=== PATIENT | female | born 1965 | race Caucasian/White ===

== ENCOUNTER 2022-08-07 09:25 | Outpatient (CLI) | payer BC, SELFPAY ==
--- NOTE | 2022-08-07 | ECG_ITS ---
Measurements Intervals [place] Rate: 63 P: 72 AK: 144 QRS: 80 QRSD: 86 T: 74 QT: 402 QTc: 413 Interpretive Statements SINUS RHYTHM NO PREVIOUS ECG AVAILABLE FOR COMPARISON Electronically Signed On 08-07-2022 16:13:40 MEDICAL AFFAIRS LEADER by Nela Chavez M.D.
--- NOTE | ~2022-08-07 | XR_ITS ---
EXAMINATION: XR chest 2V DATE: 08/07/2022 09:51 INDICATION: Palpitations. Shortness of breath. Left chest pain. TECHNIQUE: Frontal and lateral views of the chest were obtained. COMPARISON: Neck CT 04/25/2015 FINDINGS: There is mild scarring at the lung apices. No pleural effusion or pneumothorax. The heart s ize is normal. IMPRESSION: 1. Stable mild scarring at the lung apices. Reviewed, dictated and finalized at location A. LLIGENCE SUPPORT OFFICER
[2022-08-07 10:40] LABS: Basophils Percent Auto 0.6 % (0.2-1.2); Eosinophils Percent Auto 0.2 % (0-4.4); Hematocrit 42.1 % (37.0-47.0); Hemoglobin 14.2 g/dL (12.0-15.0); Immature Granulocyte Absolute 0.01 K/mm3 (0.00-0.031); Immature Granulocyte Percent A 0.2 % (0-0.5); Lymphocytes Percent Auto 28.1 % (18.3-44.2); Mean Corpuscular HGB Conc 33.7 g/dl (32-36); Mean Corpuscular Hemoglobin 31.7 pg (26-34); Monocytes Absolute Auto 0.3 K/mm3 (0.1-0.6); Monocytes Percent Auto 6.9 % (2.6-8.5); Platelet Count Result 196 k/mm3 (150-375); Red Blood Count 4.48 M/mm3 (4.2-5.4); Red Cell Distribution Width 11.9 % (11.5-14.5); White Blood Count 4.6 K/mm3 (4.5-10.0)
[2022-08-07 10:58] LABS: Alanine Aminotransferase 21 U/L (6-35); Albumin Level 4.1 g/dL (3.5-5.1); Alkaline Phosphatase 73 U/L (38-126); Anion Gap 4 mmol/L (8-16); Aspartate Amino Transferase 23 U/L (14-36); Bilirubin,Total 0.7 mg/dL (0.2-1.3); Blood Urea Nitrogen 13 mg/dL (7-17); Carbon Dioxide 33 mmol/L (22-30); Chloride 105 mmol/L (98-107); Cholesterol 253 mg/dL (0-200); Estimated Glomerular Filt Rate > 60; Glucose 98 mg/dL (65-110); HDL Direct 71 mg/dL; Magnesium 1.9 mg/dL (1.6-2.3); Phosphorus 3.6 mg/dL (2.5-4.5); Potassium 4.1 mmol/L (3.4-5.0); Sodium 142 mmol/L (137-145); Triglycerides 83 mg/dL (<150)
[2022-08-07 10:59] LABS: Creatinine Urine 114.5 mg/dL
[2022-08-07 11:09] LABS: LDL Cholesterol Direct 114 mg/dL
[2022-08-07 11:40] LABS: Hemoglobin A1C 4.7 % (<5.7)
[2022-08-07 12:03] LABS: Folic Acid 10.1 ng/mL (2.76->20)
[2022-08-07 12:20] LABS: Iron 68 ug/dL (37-170)
[2022-08-07 12:30] LABS: Percent Iron Saturation 19 % (20-50)
[2022-08-07 12:38] LABS: MALB Creatinine Ratio < 5.2 mg/g (0-30); Microalbumin Urine Random < 6.0 mg/L (0-16.7)
[2022-08-07 12:39] LABS: Free T4 Free Thyroxine 0.86 ng/mL (0.78-2.19)
[2022-08-07 13:18] LABS: Vitamin D 25 Hydroxy 16.3 ng/mL
[2022-08-10 04:14] LABS: Triiodothyronine T3 Free 2.7 pg/mL (2.3-4.2)
[2022-08-15 11:04] LABS: Testosterone Free 2.9 pg/mL (0.2-5.0)
== END 2022-08-07 09:26 | disposition home or self-care (01) ==
PROVIDERS: PCP Nurse Practitioner Adult Health; Visit Provider Nurse Practitioner Adult Health
DX: R00.2 Palpitations (principal); R53.1 Weakness; R06.02 Shortness of breath; R59.1 Generalized enlarged lymph nodes; R53.83 Other fatigue
CPT/HCPCS: 36415; 71046; 80053; 80061; 82043; 82306; 82607; 82746; 83036; 83540; 83550; 83735; 84100; 84402; 84439; 84443; 84481; 84550; 85025; 85027; 93005

== ENCOUNTER 2023-08-31 10:52 | Emergency (ER) | payer OTHER, SELFPAY ==
[2023-08-31 11:12] VITALS: BP 107/70; PULSE 68; RESP 16; TEMP 37.1; O2SAT 100
--- NOTE | 2023-08-31 11:23 | ED.GENADULT ---
HPI - General Adult General Chief complaint: Eye Problems Stated complaint: Eyes Irritation Source: patient, RN notes reviewed and old records reviewed Mode of arrival: ambulatory Limitations: no limitations History of Present Illness HPI narrative: 57-year-old female presents to [facility] with complaint of bilateral eye redness, swelling, irritation, drainage that started yesterday. Patient states it is worsened right eye. Patient states has tried feeding eyes and feels like she has bruising eyes to get drainage off. Related Data Home Medications Medication Instructions Recorded Confirmed Fish Oil 1 cap PO DIRECTED 08/31/23 08/31/23 ergocalciferol (vitamin D2) 1,250 1,250 mcg PO WEEKLY 08/31/23 08/31/23 mcg (50,000 unit) capsule Allergies Allergy/AdvReac Type Severity Reaction Status Date / Time Sulfa (Sulfonamide Allergy Mild Other Verified 08/31/23 11:10 Antibiotics) Review of Systems Constitutional: Constitutional: Reports no additional constitutional complaints, Denies body ache(s), Denies chills, Denies fatigue, Denies fever(s) and Denies headache(s) Eyes: Eyes: Reports as per HPI, Denies blurry vision, Denies exophthalmos, Denies change in vision, Denies decreased night vision, Denies diplopia, Reports eye discharge, Reports irritation, Reports eye pain and Reports requires corrective lenses ENT: Reports system reviewed and no additional complaints, except as documented, Denies vertigo, Denies dizziness, Denies ear discharge, Denies otalgia, Denies facial pain, Denies headache(s), Denies nasal congestion, Denies nasal discharge, Denies sinus pain, Denies sinus pressure and Denies sore throat Cardiovascular: Cardiovascular: Reports no additional cardiovascular complaints, Denies chest pain, Denies chest pain at rest, Denies rapid heart rate and Denies dyspnea Respiratory: Respiratory: Reports no additional respiratory complaints, Denies chest congestion, Denies cough, Denies pain on inspiration, Denies pain with cough and Denies dyspnea Gastrointestinal: Gastrointestinal: Denies abdominal pain, Denies diarrhea, Denies nausea and Denies vomiting Integumentary/Breasts: Skin/Breast: Denies rash Neurologic: Reports system reviewed and no additional complaints, except as documented, Denies vertigo, Denies dizziness and Denies headache(s) Endocrine: Endocrine: Denies fatigue PMFSH Comments At the time of my signature, I reviewed and agree with the nursing past medical, surgical, social, and family history. There is no relevant family history pertinent to the patient complaint. Exam Const: General: cooperative, healthy appearing, no acute distress and well nourished Nutritional Appearance: well nourished Orientation/consciousness: patient oriented x3 Limitations: no limitations HENMT: Head: normal to inspection and normocephalic Ears: external ears normal Face/Nose/Sinus: normal facial exam Face and sinus: normal facial exam Mouth: Yes Normal oral and palatal mucosa present, Yes oropharynx normal and Yes moist mucous membranes Eyes: Alignment and Position: alignment normal Periorbital: periorbital findings normal Eyelids: eyelid abnormality right upper eyelid erythema Conjunctivae: conjunctival abnormality bilateral discharge Sclera: sclerae normal and scleral abnormality bilateral scleral exudate Pupils: Equal, round and reactive pupils present Resp: Effort & Inspection: normal respiratory effort, able to speak in complete sentences, no audible wheezes, no cough, no respiratory distress and no retractions Auscultation: clear to auscultation bilaterally, no crackles, no rales, no rhonchi and no wheezes Cardio: Rate: regular rate Rhythm: regular rhythm Skin: General skin exam: normal color and no rashes or lesions noted Neuro: General: patient oriented x3 Cranial nerves: Yes Equal, round and reactive pupils present Psych: Appearance: grossly normal Mental Status: mental status grossly no
== END 2023-08-31 11:28 | disposition home or self-care (01) ==
PROVIDERS: Emergency Provider Registered Nurse; PCP Family Medicine
DX: H10.89 Other conjunctivitis (principal)
CPT/HCPCS: 99213; G0463

== ENCOUNTER 2024-03-04 08:18 | Emergency (ER) | payer OTHER, SELFPAY ==
--- NOTE | 2024-03-04 08:21 | ED.EYEPROB ---
HPI - Eye Problem General Chief complaint: Eye Problems Stated complaint: Right Eye Irritation Time Seen by Provider: 03/04/24 08:25 Source: patient, RN notes reviewed and old records reviewed Mode of arrival: ambulatory Limitations: no limitations History of Present Illness HPI Narrative: 58-year-old female presents to the [facility] with right eye irritation that started when she woke up this morning Denies any trauma. Does wear contact lenses. Denies any pain. States that she has had watery eyes. Reports redness and stating that the right upper eyelid feels swollen. Onset (ago): hour(s) (2) Treatments Prior to Arrival: other (Left over 0 floxacillin drops) Related Data Home Medications Medication Instructions Recorded Confirmed Fish Oil 1 cap PO DIRECTED 08/31/23 03/04/24 ergocalciferol (vitamin D2) 1,250 1,250 mcg PO WEEKLY 08/31/23 03/04/24 mcg (50,000 unit) capsule Allergies Allergy/AdvReac Type Severity Reaction Status Date / Time Sulfa (Sulfonamide Allergy Mild Other Verified 03/04/24 08:28 Antibiotics) Review of Systems Review of Systems: All systems reviewed & are unremarkable except as noted in HPI and below Constitutional: Constitutional: Reports no additional constitutional complaints Eyes: Eyes: Reports as per HPI, Reports eye discharge (Clear), Reports irritation (Right) and Reports itchy eyes (Right) ENT: Reports system reviewed and no additional complaints, except as documented Cardiovascular: Cardiovascular: Reports no additional cardiovascular complaints, Denies chest pain and Denies dyspnea Respiratory: Respiratory: Reports no additional respiratory complaints, Denies chest congestion, Denies cough and Denies dyspnea Gastrointestinal: Gastrointestinal: Reports no additional gastrointestinal complaints, Denies abdominal pain, Denies nausea and Denies vomiting Musculoskeletal: Musculoskeletal: Reports no additional musculoskeletal complaints Integumentary/Breasts: Skin/Breast: Reports system reviewed and no additional complaints, except as docu Neurologic: Reports system reviewed and no additional complaints, except as documented Psychiatric: Psychiatric: Reports no additional psychiatric complaints Allergic/Immunologic: Allergic/Immunologic: Reports no additional allergic/immunologic complaints PMFSH Comments At the time of my signature, I reviewed and agree with the nursing past medical, surgical, social, and family history. There is no relevant family history pertinent to the patient complaint. Exam Const: General: cooperative, healthy appearing, comfortable, no acute distress, well developed, alert and well nourished Nutritional Appearance: well nourished Orientation/consciousness: patient oriented x3 Limitations: no limitations HENMT: Head: normal to inspection Ears: hearing grossly normal bilaterally, external ears normal, TM's normal bilaterally, EAC's normal, mastoids normal and no periauricular adenopathy Face/Nose/Sinus: Normal external nose present, Normal nares present, Normal nasal mucous membranes and turbinates present, normal facial exam and face symmetric Face and sinus: normal facial exam and face symmetric Mouth: Yes Normal oral and palatal mucosa present, Yes lip normal and Yes tongue normal Throat: posterior oropharynx normal, uvula midline and no uvular edema Eyes: General: appearance normal, both eyes and all related structures Alignment and Position: alignment normal Periorbital: periorbital findings normal Eyelids: eyelid abnormality right upper eyelid inflamed cyst external lid and tenderness (Medial aspect); without erythema, without foreign bodies, no crusting or scaling of lid margins and with no swelling Conjunctivae: conjunctivae normal Pupils: Equal, round and reactive pupils present EOM: EOMs intact bilaterally Direct Ophthalmoscopy: no photophobia Other: 20 40 right, 20 40 left Eyes/upper lids images: 1. Stye noted Neck:
[2024-03-04 08:28] VITALS: BP 118/84; PULSE 77; RESP 18; TEMP 37.5; O2SAT 100
== END 2024-03-04 08:45 | disposition home or self-care (01) ==
PROVIDERS: Emergency Provider Nurse Practitioner; PCP Family Medicine
DX: H00.011 Hordeolum externum right upper eyelid (principal)
CPT/HCPCS: 99213; G0463

== ENCOUNTER 2024-03-18 11:18 | Outpatient (CLI) | payer OTHER, SELFPAY ==
--- NOTE | ~2024-03-18 | XR_ITS ---
XR shoulder RT min 2V Ordering provider: Chaz Boles, SOFT WORK WRAPPER LAYER AND EXAMINER History: . RIGHT SHOULDER PAIN, LIMITED ROM, SHOULDER BLADE PAIN, INJUR . Comparison: None. FINDINGS: BONES: No acute fracture or dislocation. Minimal degenerative changes in the area of the greater tube rosity. JOINT SPACES: The acromioclavicular joint is normal. The glenohumeral joint is normal. SOFT TISSUES: Normal. IMPRESSION: No acute osseous abnormality right shoulder. Reviewed, dictated and finalized at location A.
== END 2024-03-18 11:19 | disposition home or self-care (01) ==
LOC: ANHIMG 11:20
PROVIDERS: PCP Family Medicine; Visit Provider Registered Nurse
DX: M25.511 Pain in right shoulder (principal)
CPT/HCPCS: 73030

== ENCOUNTER 2024-07-02 09:00 | Outpatient (RCR) | payer OTHER, SELFPAY ==
[2024-04-08 08:00] VITALS: BP_SYST 80
--- NOTE | 2024-04-08 09:04 | OPREHPOC ---
Outpatient Therapy Plan of Care This is a Multidisciplinary Plan of Care that may contain components documented by all disciplines (PT, OT, and ST.) PT Problem 1 PT Problem #1 Knowledge Deficit PT Goal 1 Goal / Goal Update *indep with HEP * correct shoulder position with exercises Target Visit 8 PT Problem 2 PT Problem #2 Pain PT Goal 1 Goal / Goal Update 1* pt report pain rating at worst of 5/10 2* self assessment Quick DASH rating of 50% limitation in activity 3* pt reports sleeping tolerance of 4 hours at time Target Visit 8 PT Problem 3 PT Problem #3 Impaired Flexibility PT Goal 1 Goal / Goal Update increase flexibility of R shoulder, to improve ability to reach and use R/dominant UE: in standing: active motion 1* flexion to 130' 2* abduction to 90' 3* ER- reach to back of head, palm to back of head 4*IR- reach behind back, palm to waist Target Visit 8 PT Problem 4 PT Problem #4 Impaired Strength PT Goal 1 Goal / Goal Update increase strength of R shoulder, to be able to cook and do self care activities, carry groceries: in standing x 5 reps 1* flexion to 90' with 2# hand wt 2* abduction to 90' 3* IR- reach behind back, palm to waist Target Visit 8
--- NOTE | 2024-04-08 09:04 | PTOPEVAL1 ---
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; Reported Pain Level Pain Score Self Report Additional Pain Score Comments pain range in the past week: 1- 9/10; pulls and hurts, cannot use arm; anterior, posterior, lateral and top of GH joint; radicular into humerus to elbow, initially was into her forearm; increase pain: use R arm; getting dressed, cooking decrease pain: rest arm, hot shower, essential oils; rub shoulder is not taking any pain meds; with sleeping- unable to lie on her R side; sleep 2 hours at time ( normal- 4 hours/time) also reports pain in R wrist--sprained with lifting flag out of a pole in December Assessment PT Clinical Summary Devon has the diagnosis of R shoulder pain. Onset in October with reaching out with R arm. Self assessment Quick DASH rating of 84% limitation in activity level. She is R hand dominant and reports problems with dressing, carrying groceries and cooking. History includes intermittent neck pain and recently sprained R wrist with lifting. With the evaluation-- decreased active motion and strength of all ranges R shoulder; active cervical ranges WNL and pain increase over R upper traps and neck. posture is rounded and with palpation over shoulder--all areas painful and jumps to light touch. Skilled PT services are indicated for treatment of frozen shoulder: modalities to decrease pain and spasms, therapeutic exercises to increase R shoulder ROM and strength with education for posture and HEP. Plan of Care Interventions Electrical Stimulation,Hot Pack/Cold Pack,Manual Therapy,Neuro Re-education,Patient Education,Therapeutic Activities,Therapeutic Exercise,Ultrasound,Other Other Interventions taping PT Services Indicated Yes Treatment Frequency and 2x/wk for 8 visits Duration These treatments will address the objective and functional deficits as defined above. The patient will be advanced safely and appropriately in order for the patient to progress towards his/her prior level of function. Additional exercises will be introduced and as well as a comprehensive home exercise program upon discharge, if needed, ?to ensure carryover of functional gains achieved in the clinic. This treatment plan has been reviewed and agreement upon by the patient.
[2024-05-04 12:30] VITALS: BP_SYST 85
--- NOTE | 2024-05-04 13:32 | OPREHPOC ---
Outpatient Therapy Plan of Care This is a Multidisciplinary Plan of Care that may contain components documented by all disciplines (PT, OT, and ST.) PT Problem 1 PT Problem #1 Knowledge Deficit PT Goal 1 Goal / Goal Update *indep with HEP * correct shoulder position with exercises Target Visit 8 Progress Partially Met PT Goal 2 Goal / Goal Update 05-04-24 progress goals partially met--still needs cues for position shoulder continue towards goals with progression of HEP Target Visit 16 PT Problem 2 PT Problem #2 Pain PT Goal 1 Goal / Goal Update 1* pt report pain rating at worst of 5/10 2* self assessment Quick DASH rating of 50% limitation in activity 3* pt reports sleeping tolerance of 4 hours at time Target Visit 8 Progress Partially Met PT Goal 2 Goal / Goal Update 05-04-24 progress goal 3 met; improved with #1 to 10 and #2-DASH of 75% continue towards goals 1 & 2 Target Visit 16 PT Problem 3 PT Problem #3 Impaired Flexibility PT Goal 1 Goal / Goal Update increase flexibility of R shoulder, to improve ability to reach and use R/dominant UE: in standing: active motion 1* flexion to 130' 2* abduction to 90' 3* ER- reach to back of head, palm to back of head 4*IR- reach behind back, palm to waist Target Visit 8 Progress Not Met PT Goal 2 Goal / Goal Update 05-04-24 progress improved with all, but goals not met continue towards goals Target Visit 16 PT Problem 4 PT Problem #4 Impaired Strength PT Goal 1 Goal / Goal Update increase strength of R shoulder, to be able to cook and do self care activities, carry groceries: in standing x 5 reps 1* flexion to 90' with 2# hand wt 2* abduction to 90' 3* IR- reach behind back, palm to waist Target Visit 8 Progress Not Met PT Goal 2 Goal / Goal Update 05-04-24 progress goals not met; #1 met for 2# hand weight, but not to 90' continue towards goals Target Visit 16
--- NOTE | 2024-05-04 13:32 | PTOPPROG ---
Assessment and note entered by Yamile Gtz, PT Progress Report Assessment Status Progress ICD-10 Condition Codes (PT) M25.511 Onset November 26, 2023 Subjective Information shoulder is better, but not all the way fixed yet; is doing exercises at home and they help; the therapist moving my shoulder and manipulate the joint is helping; want to keep coming for therapy and get shoulder better. PAIN: range in the past week -02/06: ant-lat- posterior shoulder increase pain: throwing blankets back off; stress decrease pain: doing the exercises; heat, alelexis REYNOLDS is sleeping a maximum of 4 hours at time Assessment PT Clinical Summary Devon has received a total of 8 PT sessions. Compared to the initial evaluation: pain rating from to 1-02/06; self assessment Quick Dash from 84 to 75% limitation in activity level: reported tolerance with sleeping from 2 to 4 hours at time. ROM of R shoulder: active/passive: flexion 105/130' abduction 75/85'; standing active IR- reach behind back, fingers to sacrum ER- reaching to back of head, fingers to back of head all shoulder motions increase pain, with most pain increase with abduction motion. She has received education for HEP and posture correction. The goals were partially met. Continue PT treatments. Plan of Care Interventions Electrical Stimulation,Hot Pack/Cold Pack,Manual Therapy,Neuro Re-education,Patient Education,Therapeutic Activities,Therapeutic Exercise,Ultrasound,Other Other Interventions taping PT Services Indicated Yes Treatment Frequency and 2x/wk for 8 visits Duration These treatments will address the objective and functional deficits as defined above. The patient will be advanced safely and appropriately in order for the patient to progress towards his/her prior level of function. Additional exercises will be introduced and as well as a comprehensive home exercise program upon discharge, if needed, ?to ensure carryover of functional gains achieved in the clinic. This treatment plan has been reviewed and agreement upon by the patient.
[2024-05-31 12:40] VITALS: BP_SYST 150
--- NOTE | 2024-05-31 13:34 | OPREHPOC ---
Outpatient Therapy Plan of Care This is a Multidisciplinary Plan of Care that may contain components documented by all disciplines (PT, OT, and ST.) PT Problem 1 PT Problem #1 Knowledge Deficit PT Goal 1 Goal / Goal Update *indep with HEP * correct shoulder position with exercises Target Visit 8 Progress Partially Met PT Goal 2 Goal / Goal Update 05-04-24 progress goals partially met--still needs cues for position shoulder continue towards goals with progression of HEP 05-31-24 progress goal met; continue to progress HEP and education Target Visit 24 PT Problem 2 PT Problem #2 Pain PT Goal 1 Goal / Goal Update 1* pt report pain rating at worst of 5/10 2* self assessment Quick DASH rating of 50% limitation in activity 3* pt reports sleeping tolerance of 4 hours at time Target Visit 8 Progress Partially Met PT Goal 2 Goal / Goal Update 05-04-24 progress goal 3 met; improved with #1 to 8/10 and #2-DASH of 75% continue towards goals 1 & 2 05-31-24 progress goal 3 met; #2 improved to 59% limitation continue towards goals Target Visit 24 PT Problem 3 PT Problem #3 Impaired Flexibility PT Goal 1 Goal / Goal Update increase flexibility of R shoulder, to improve ability to reach and use R/dominant UE: in standing: active motion 1* flexion to 130' 2* abduction to 90' 3* ER- reach to back of head, palm to back of head 4*IR- reach behind back, palm to waist Target Visit 8 Progress Not Met PT Goal 2 Goal / Goal Update 05-04-24 progress improved with all, but goals not met continue towards goals 05-31-24 progress goals 1,2,3 met NEW GOALS: active R shoulder ROM; 1* flexion 150' 2* abduction 140' Target Visit 24 PT Problem 4 PT Problem #4 Impaired Strength PT Goal 1 Goal / Goal Update increase strength of R shoulder, to be able to cook and do self care activities, carry groceries: in standing x 5 reps 1* flexion to 90' with 2# hand wt 2* abduction to 90' 3* IR- reach behind back, palm to waist Target Visit 8 Progress Not Met PT Goal 2 Goal / Goal Update 05-04-24 progress goals not met; #1 met for 2# hand weight, but not to 90' continue towards goals 24 progress goals 1,2 met NEW GOALS: in standing 5 reps to 90'; 1* flexion 4# 2* abduction 2# Target Visit 24
--- NOTE | 2024-05-31 13:34 | PTOPPROG ---
Assessment and note entered by Yamile Gtz, PT Progress Report Assessment Status Progress ICD-10 Condition Codes (PT) M25.511 Onset November 26, 2023 Subjective Information having problems pushing the grocery cart and carrying groceries with R arm; am not vacuuming at home; going to see a neurologist for the dizziness, off balance and head bobbing; do not see Dr Peguero until October. PAIN: range in the past week: ; shoulder locks up reports sleeping tolerance about 6 hours at time, but had a bad night and it was 3 & 1/2 hours increase pain: shoulder motions of abduction, IR and flexion; decrease pain: heat, rest; is not taking any pain meds; Assessment PT Clinical Summary Devon has received 16 PT sessions. Compared to the last reeval: pain from to ; self assessment with Quick DASH rating from 75 to 59% limitation in activity level; reported sleeping tolerance from 4 to 6 hours at time;increased active ROM of R shoulder flexion, abduction and ER motions; IR motion is the most painful and is the same ROM; increase strength of shoulder flexion to 2# hand wt to 90' and abduction with 1# hand wt to 80'; education for HEP and pain control. The goals were partially met. Continue PT. Discussed with pt to contact her dr for a follow up appointment-- ? referral to ortho dr and MRI. Plan of Care Interventions Electrical Stimulation,Hot Pack/Cold Pack,Manual Therapy,Neuro Re-education,Patient/Caregiver Education,Therapeutic Activities,Therapeutic Exercise,Ultrasound,Other Other Interventions taping PT Services Indicated Yes Treatment Frequency and 2x/wk for 8 visits Duration These treatments will address the objective and functional deficits as defined above. The patient will be advanced safely and appropriately in order for the patient to progress towards his/her prior level of function. Additional exercises will be introduced and as well as a comprehensive home exercise program upon discharge, if needed, ?to ensure carryover of functional gains achieved in the clinic. This treatment plan has been reviewed and agreement upon by the patient.
--- NOTE | 2024-07-02 09:38 | PTOPDC ---
Assessment and note entered by Yamile Gtz, PT Assessment Status Discharge ICD-10 Condition Codes (PT) Pain in right shoulder M25.511 Onset November 26, 2023 Subjective Information shoulder is less painful; still have some frozen feeling in front of shoulder; doing all of the exercises; going to the neurologist in Jul; agree to d/c from PT. Reported Pain Level Pain Score Self Report Additional Pain Score Comments pain range in the past week of 0-1/10; front of shoulder frozen; no issues with sleeping; some pain with shoulder IR motion Assessment PT Clinical Summary Devon has received 24 PT sessions for R shoulder pain. With today's reassessment: pain of shoulder 0-1/10 at anterior shoulder- tight, sore, frozen in there; no issues with sleeping due to shoulder pain; self assessment with Quick DASH of 25%; she has not performed heavy home tasks of vacuum yet- afraid she will hurt her shoulder. Active ROM in standing: R shoulder flexion 135'; abduction 150'; IR- reach behind back, fingers to bra strap; ER- reaching to back of head, fingers to cervical spine. Strength: R shoulder: 5 reps with hand wt in standing: flexion to 90' with 3# and abduction to 90' with 2#; Bilateral UE box lift from floor/waist height: 25# x 3 reps, with good technique and no pain increase. Education completed for HEP and posture/body mechanics. The goals were partially met. Discharge PT services. Plan of Care PT Services Indicated No
== END 2024-07-02 14:16 | disposition home or self-care (01) ==
LOC: ANHPT 09:00
PROVIDERS: PCP Family Medicine; Visit Provider Family Medicine
DX: M25.511 Pain in right shoulder (principal)
CPT/HCPCS: 97110; 97140; 97161; 97530

== ENCOUNTER 2025-02-22 12:30 | Outpatient (RCR) | payer OTHER, SELFPAY ==
--- NOTE | 2024-12-15 12:05 | OPREHPOC ---
Outpatient Therapy Plan of Care This is a Multidisciplinary Plan of Care that may contain components documented by all disciplines (PT, OT, and ST.) PT Problem 1 PT Problem #1 Knowledge Deficit PT Goal 1 Goal / Goal Update *independent with HEP Target Visit 10 PT Problem 2 PT Problem #2 Pain PT Goal 1 Goal / Goal Update * L shoulder pain 4/10 at worst Target Visit 10 PT Problem 3 PT Problem #3 Impaired Flexibility PT Goal 1 Goal / Goal Update increase flexibility of L shoulder, to improve use of L arm for home and self care tasks: active in standin* flexion 145' 2* abduction 130' 3* IR- with reaching behind back, palm to above waist Target Visit 10 PT Problem 4 PT Problem #4 Impaired Strength PT Goal 1 Goal / Goal Update increase strength of L shoulder, to improve use of L arm: gross strength 4/5
--- NOTE | 2024-12-15 12:05 | PTOPEVAL1 ---
Assessment and note entered by Yamile Gtz, PT Evaluation Information Assessment Status Evaluation ICD-10 Condition Codes (PT) Pain in right shoulder M25.511,Pain in left shoulder M25.512 Onset Aug 11, 2024 Subjective Information shoulder was hurting and she grabbed top of her shoulder, made hurt more since Jul, pain is less; have some swelling over the front of her shoulder have been exercises that she was here in the past for her R shoulder: supine cane exercises, active: supine, side lying, prone and sitting shoulder motions, 3-10 reps, 3-4 x /day, use 8 oz can for some of them; also doing the exercises on her R arm with more weight wants to work on both shoulders-- R is better but still needs more therapy and now L hurting R hand dominant also having problems with her walking and balance; when sister was here from out of town last week, was hurting so bad she had to stay in bed and could not do anything with her. activity: does not work outside of home, assists with care of her mother and home tasks; reports problems with opening doors in public, pushing/pulling grocery carts, lifting carrying bags of groceries, holding and carrying dishes in L hand fear of falling down the stairs with carrying something; driving- locally only, outside of [place] is hard to do; getting comfortable with sitting and scapula leaning on the chairs; cannot get comfortable when in bed; Reported Pain Level Pain Score Self Report Additional Pain Score Comments pain range of shoulders in the past week: 3-12/07: R and L shoulders: L more pain than R; decrease pain: do the shoulder exercises 4x/day; emu oil increase pain: lie on R or L side; lie on back- hurts scapula no pain meds; with sleeping, awaken due to shoulder pain 1x/night Assessment PT Clinical Summary Devon has the diagnosis of R and L shoulder pain. Onset in July with L shoulder hurting and she grabbed it and pulled on it. x ray was negative. Has had PT here for her R shoulder and continues to do HEP on both shoulders , 3-4 x/day, about 20 minutes each session. Quick DASH self rating of 57% limitation in activity. Decrease use of L arm for lifting, carrying, pushing, pulling activities. With the evaluation: R shoulder has good ROM--- discussed for her to continue her HEP from previous PT and treatment here will be for her L shoulder; L shoulder- decreased ROM of flexion, abduction and IR and strength with abduction most painful motion; poor standing posture with rounding of both shoulders and L elevated and winging of bilateral scapula; tenderness with palpation over all areas of both shoulders. Skilled PT services are indicated for treatment of L shoulder impingement: modalities PRN, therapeutic exercises and education for HEP and posture correction/body mechanics. Plan of Care Interventions Electrical Stimulation,Hot Pack/Cold Pack,Manual Therapy,Neuro Re-education,Therapeutic Activities, Therapeutic Exercise,Ultrasound,Other Other Interventions taping PT Services Indicated Yes Treatment Frequency and 1-2x/wk for 10 visits Duration These treatments will address the objective and functional deficits as defined above. The patient will be advanced safely and appropriately in order for the patient to progress towards his/her prior level of function. Additional exercises will be introduced and as well as a comprehensive home exercise program upon discharge, if needed, ?to ensure carryover of functional gains achieved in the clinic. This treatment plan has been reviewed and agreement upon by the patient.
--- NOTE | 2025-01-24 14:31 | OPREHPOC ---
Outpatient Therapy Plan of Care This is a Multidisciplinary Plan of Care that may contain components documented by all disciplines (PT, OT, and ST.) PT Problem 1 PT Problem #1 Knowledge Deficit PT Goal 1 Goal / Goal Update *independent with HEP 01-24-25 progress goal met continue to progress HEP Target Visit 20 PT Problem 2 PT Problem #2 Pain PT Goal 1 Goal / Goal Update * L shoulder pain 4/10 at worst 01-24-25 progress goal not met; rating of 7/10 at worst continue towards goal Target Visit 20 PT Problem 3 PT Problem #3 Impaired Flexibility PT Goal 1 Goal / Goal Update increase flexibility of L shoulder, to improve use of L arm for home and self care tasks: active in standin* flexion 145' 2* abduction 130' 3* IR- with reaching behind back, palm to above waist 01-24-25 progress goals not met: #1 135'; #2 90'; #2 palm to sacrum continue towards goals Target Visit 20 PT Problem 4 PT Problem #4 Impaired Strength PT Goal 1 Goal / Goal Update increase strength of L shoulder, to improve use of L arm: gross strength 4/5 01-24-25 progress goal not met; 3+/5 in available ROM continue towards goal Target Visit 20
--- NOTE | 2025-01-24 14:31 | PTOPPROG ---
Assessment and note entered by Yamile Gtz, PT Assessment Status Progress ICD-10 Condition Codes (PT) Pain in right shoulder M25.511,Pain in left shoulder M25.512 Onset Aug 11, 2024 Subjective Information shoulder stretching is going well with the therapists; still have problems with lifting, pushing, pulling or any weight through my arm; is not doing any housework; is able to do light cooking and light grocery shopping; to see ortho dr--Dr. Desai; PAIN: range in the past week: 4-7/10; anterior, posterior GH joint, scapular area; increase pain: driving- bumps and vibrations in roads, shopping, wearing seat belt decrease pain: rest, stretching, heat; with sleeping, hard to get comfortable to fall asleep; wake up 2x/night due to pain in shoulder; not taking any pain meds--over the counter meds do not help at all; Assessment PT Clinical Summary Devon has received 10 PT sessions. Compared to the initial evaluation: pain rating from 3-6/10 to 4-7/10; self assessment with Quick DASH from 57 to 52% limitation in activity; report awakening from sleeping 1x to 2x/night; tenderness with palpation over L shoulder: biceps and anterior shoulder; shoulder ROM are same or increase 10'; education for posture and HEP. ROM L shoulder: active in standing/passive in supine: flexion 135/145'; abduction 90/90'; IR- reach behind back, palm to sacrum/50'; ER- reach to back of head, fingers to cervical spine/ 50'; The goals were partially met. Continue PT treatment to further decrease pain and increase ROM and strength of L shoulder. Plan of Care Interventions Electrical Stimulation,Hot Pack/Cold Pack,Manual Therapy,Neuro Re-education,Therapeutic Activities, Therapeutic Exercise,Ultrasound,Other Other Interventions taping PT Services Indicated Yes Treatment Frequency and 1-2x/wk for 10 visits Duration These treatments will address the objective and functional deficits as defined above. The patient will be advanced safely and appropriately in order for the patient to progress towards his/her prior level of function. Additional exercises will be introduced and as well as a comprehensive home exercise program upon discharge, if needed, ?to ensure carryover of functional gains achieved in the clinic. This treatment plan has been reviewed and agreement upon by the patient.
--- NOTE | 2025-02-02 16:41 | PCPTNOTE ---
Pt called today to report that her shoulder was hit by the car door. ACCOUNT AUDITOR discussed gentle ROM for today. Pt to begin strengthening as tolerated tomorrow after pain free. Heat and ice as needed. We will see her on scheduled Friday. ELIEZER
--- NOTE | 2025-02-22 13:35 | OPREHPOC ---
Outpatient Therapy Plan of Care This is a Multidisciplinary Plan of Care that may contain components documented by all disciplines (PT, OT, and ST.) PT Problem 1 PT Problem #1 Knowledge Deficit PT Goal 1 Goal / Goal Update *independent with HEP 01-24-25 progress goal met continue to progress HEP 02-22-25 d/c goal met Target Visit 20 Progress Met PT Problem 2 PT Problem #2 Pain PT Goal 1 Goal / Goal Update * L shoulder pain 4/10 at worst 01-24-25 progress goal not met; rating of 7/10 at worst continue towards goal 02-22-25 d/c goal not met, 7/10 is worst rating of pain Target Visit 20 Progress Not Met PT Problem 3 PT Problem #3 Impaired Flexibility PT Goal 1 Goal / Goal Update increase flexibility of L shoulder, to improve use of L arm for home and self care tasks: active in standin* flexion 145' 2* abduction 130' 3* IR- with reaching behind back, palm to above waist 01-24-25 progress goals not met: #1 135'; #2 90'; #2 palm to sacrum continue towards goals 02-22-25 d/c goals not met Target Visit 20 Progress Not Met PT Problem 4 PT Problem #4 Impaired Strength PT Goal 1 Goal / Goal Update increase strength of L shoulder, to improve use of L arm: gross strength 4/5 01-24-25 progress goal not met; 3+/5 in available ROM continue towards goal 02-22-25 d/c goals not met Target Visit 20 Progress Not Met
--- NOTE | 2025-02-22 13:35 | PTOPDC ---
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 Reported Pain Level Pain Score Self Report Additional Pain Score Comments pain range in the past week -01/06; anterior & posterior GH joint and distal scapula; spasms in shoulder; shoulder and arm are like weight; increase pain: driving, put on seat belt, bumps and uneven road, walking, standing, scapula touching something, quick arm motion, household tasks, pushing, pulling, lifting, carrying decrease pain: heat, biofreeze, emu oil, massage, US, meditation, PT, rest, praying, distracting activities ( pt provided a written note with all of the above increase and decrease pain items) with sleeping, awakening 1-2x/night due to pain Assessment PT Clinical Summary Devon has received a total of 12 PT sessions. She is very frustrated and became tearful about her shoulder and issues with insurance company not approving therapy. With today's assessment, compared to last assessment: pain rating is the same at 4-7/10 and reported sleeping tolerance is the same with awakening 1-2x/night due to shoulder pain; self assessment with Quick DASH rating from 52% to 75% limitation in activity level; her shoulder active and passive motions are about the same with IR and ER & 15' less with active flexion and abduction motions; education for HEP, posture were completed. L shoulder ROM: active in standing/ passive in supine: flexion 120/145'; abduction 75/80'; IR- reach behind back, palm to sacrum/ 40'; ER- reach behind head, fingers to cervical spine/30'. The goals were partially met. Discharge PT due to insurance issues. Plan of Care PT Services Indicated No
== END 2025-02-22 15:33 | disposition home or self-care (01) ==
LOC: ANHPT 12:30
PROVIDERS: PCP Family Medicine; Visit Provider Orthopaedic Surgery
DX: M25.511 Pain in right shoulder (principal); M25.512 Pain in left shoulder
CPT/HCPCS: 97014; 97035; 97110; 97140; 97161; 97530; G0283